=== PATIENT | male | born 1965 | race African-American/Black ===

== ENCOUNTER 2017-03-12 02:57 | Emergency (ER) | payer SELFPAY ==
[2017-03-12] MEDS ORDERED: INSULIN GLARGINE,HUM.REC.ANLOG 1,000 UNIT/10 ML UNIT SUBCUT ONE (03:39)
[2017-03-12] MEDS ORDERED: INSULIN REG, HUMAN 100 UNIT/ML 3 ML VIAL (PYX) SUBCUT ONE ×2 (03:39→05:31)
[2017-03-12] MEDS ORDERED: NORMAL SALINE 500 ML IV ONE (03:40)
--- NOTE | 2017-03-12 03:51 | ER Document Report ---
ED General - General Chief Complaint: Dizziness Stated Complaint: DIZZINESS Time Seen by Provider: 03/12/17 03:19 Notes: Patient is a 51-year-old male presents with complaint of feeling dizzy. He also says he has blurred vision both eyes feels weak and with a short of breath. He has been off his medications for approximate month. He takes Lantus for diabetes. He says he takes 4 units at night. He also takes metformin. He is also on lisinopril. He is also on daily aspirin. He says he is on several other medications but does not remove the names of them. He just moved here from [place]. He said approximately year and half ago he was seen at a hospital that he thinks is in [facility]. He says there they did what sounds to be a heart cath and told him he had a clot 1 hours of his heart but he did not require stent. He said he was placed on a blood thinner for several months and then taken off. He said last time he saw his doctor was told he does not need this but anymore. He has any fevers. He says he has had urinary frequency. His urine has also appeared dark. He has not checked his blood sugar. He has no other complaints at this time. TRAVEL OUTSIDE OF THE U.S. IN LAST 30 DAYS: No - Related Data Allergies/Adverse Reactions: No Known Allergies Allergy (Unverified 03/12/17 03:13) Past Medical History - Social History Smoking Status: Former Smoker Frequency of alcohol use: None Drug Abuse: None Family History: Reviewed & Not Pertinent Patient has suicidal ideation: No Patient has homicidal ideation: No - Past Medical History Cardiac Medical History: Reports: Hx Hypercholesterolemia, Hx Hypertension Endocrine Medical History: Reports: Hx Diabetes Mellitus Type 2 Renal/ Medical History: Denies: Hx Peritoneal Dialysis Past Surgical History: Reports: Hx Cardiac Catheterization Review of Systems - Review of Systems Notes: My Normal Review Basic REVIEW OF SYSTEMS: CONSTITUTIONAL : Denies fever, chills, or sweats. Denies recent illness. EENT: Denies eye, ear, throat, or mouth pain or symptoms. Denies nasal or sinus congestion. CARDIOVASCULAR: Denies chest pain. RESPIRATORY: Some dyspnea. GASTROINTESTINAL: Denies abdominal pain. Denies nausea, vomiting, or diarrhea. Denies constipation. Last BM: GENITOURINARY: Dark urine with frequent urination. MUSCULOSKELETAL: Denies neck or back pain or joint pain or swelling. SKIN: Denies rash or skin lesions. NEUROLOGICAL: Denies altered mental status or loss of consciousness. Dizziness.. Denies weakness or paralysis or loss of use of either side. Denies problems with gait or speech. Denies sensory or motor loss. PSYCHIATRIC: Denies anxiety or stress or depression. ALL OTHER SYSTEMS REVIEWED AND NEGATIVE. Physical Exam - Vital signs Vitals: Temp Pulse Resp BP Pulse Ox 97.6 F 101 H 18 161/100 H 96 03/12/17 03:00 03/12/17 03:00 03/12/17 03:00 03/12/17 03:00 03/12/17 03:00 Course - Re-evaluation Re-evalutation: 03/12/17 06:56 She is feeling improved now his sugars stabilized. He says he does not have insurance and cannot afford any expensive medications. Informed her Lantus would be expensive however also write a prescription for that and he can feel it when he has money or when his insurance kicks in. In the meantime will place him back on metformin which will help stabilize his sugar as well. Also represcribed his lisinopril and hydrochlorothiazide as he used to take these for blows his blood pressure. I encouraged him to get daily aspirin when she supposed to. He says that he does have an upcoming appointment with the doctor in [facility] but he does not know the doctor's name as he has not checked his smell. He says his doctor in [place] set him up with this appointment with a local doctor here [place]. Informed patient we will give him information to the [facility] being that he says he does not have insurance. I informed him that even though his upcoming point with another doctor that he should still make an appointment to [facility] in case things follow through with this other doctor. Patient encouraged to return to ER immediately if he has chest pain, shortness of breath, or feels unwell. Patient 's initial troponin was indeterminate and therefore I did do a repeat troponin which was at almost the exact same level. Patient has no chest pain and looks well. I do not think is have any type of ischemic disease to his heart at this time. I think his blurred vision and dizziness is related to his high blood sugars especially since the symptoms have improved after improving his sugar. Dictation of this chart was performed using voice recognition software; therefore, there may be some unintended grammatical errors. - Vital Signs Vital signs: Temp Pulse Resp BP Pulse Ox 97.6 F 101 H 19 137/87 H 94 03/12/17 03:00 03/12/17 03:00 03/12/17 06:01 03/12/17 06:01 03/12/17 06:01 - Laboratory Result Diagrams: 03/12/17 03:40 03/12/17 03:40 Laboratory results interpreted by me: 03/12/17 03/12/17 03/12/17 03:40 03:40 03:40 Hgb 12.5 L MCV 78 L MCH 25.2 L Plt Count 138 L BUN 25 H Glucose 531 H* POC Glucose Alkaline Phosphatase 129 H Creatine Kinase 883 H CK-MB (CK-2) 8.38 H Urine Glucose (UA) 03/12/17 03/12/17 03:40 05:24 Hgb MCV MCH Plt Count BUN Glucose POC Glucose 341 H Alkaline Phosphatase Creatine Kinase CK-MB (CK-2) Urine Glucose (UA) >=500 H - EKG Interpretation by Me Additional EKG results interpreted by me: 03/12/17 03:48 EKG is reviewed and interpreted by me. EKG shows normal sinus rhythm with rate of 92 bpm. She has a small amount of ST segment elevation of is mainly concave up. There is less than [address] segment depression in lead III only. Patient has no chest pain. I do not think this is consistent with a STEMI at this time based on his clinical presentation. I have no old EKG to compare to. I will closely monitor and wait for troponins to come back. Discharge - Discharge Clinical Impression: Hyperglycemia, Dizziness Condition: Good Disposition: HOME, SELF-CARE Additional Instructions: Please return to the ER immediately if you develop fevers, vomiting, chest pain , difficulty rbeathing, worsening blurred vision, or feel that your symptoms are returning. Please follow up with your doctor. Please fill the prescriptions and start taking your medications. Also take a daily 81mg aspirin. I have provided information to the [facility] in case you are unable to follow up with the doctor you are supposed to see here in town. Prescriptions: Hydrochlorothiazide 12.5 mg PO DAILY #30 tablet Lisinopril 10 mg PO DAILY #30 tablet Metformin HCl [Glucophage 500 mg Tablet] 500 mg PO BID #60 tablet
[2017-03-12 04:10] LABS: ABSOLUTE EOSINOPHILS # (AUTO) 0.2 10^3/uL (0.0-0.6); ABSOLUTE LYMPHOCYTES (AUTO) 1.5 10^3/uL (0.5-4.7); ABSOLUTE MONOCYTES (AUTO) 0.6 10^3/uL (0.1-1.4); BASOPHILS % (AUTO) 0.6 % (0-2); EOSINOPHILS % (AUTO) 3.2 % (0-6); HEMATOCRIT 38.9 % (37.9-51.0); HEMOGLOBIN 12.5 g/dL (13.5-17.0); HGB HCT DIFFERENCE -1.4; LYMPHOCYTES % (AUTO) 23.3 % (13-45); MEAN CORPUSCULAR HEMOGLOBIN 25.2 pg (27.0-33.4); MEAN CORPUSCULAR HGB CONC 32.2 g/dL (32.0-36.0); MEAN CORPUSCULAR VOLUME 78 fl (80-97); MONOCYTES % (AUTO) 9.5 % (3-13); RED BLOOD COUNT 4.97 10^6/uL (4.35-5.55); RED CELL DISTRIBUTION WIDTH 13.6 % (11.5-14.0); SEGMENTED NEUTROPHILS % (AUTO) 63.4 % (42-78); WHITE BLOOD COUNT 6.3 10^3/uL (4.0-10.5)
--- NOTE | 2017-03-12 04:16 | RADIOLOGY REPORT (SQ) ---
EXAM DESCRIPTION: CHEST SINGLE VIEW COMPLETED DATE/TIME: 03/12/2017 4:00 am REASON FOR STUDY: Dyspnea, dizziness COMPARISON: None. EXAM PARAMETERS: NUMBER OF VIEWS: One view. TECHNIQUE: Single frontal radiographic view of the chest acquired. RADIATION DOSE: NA LIMITATIONS: None. FINDINGS: LUNGS AND PLEURA: No opacities, masses or pneumothorax. No pleural effusion. MEDIASTINUM AND HILAR STRUCTURES: No masses. Contour normal. HEART AND VASCULAR STRUCTURES: Heart normal in size. Normal vasculature. BONES: No acute findings. HARDWARE: None in the chest. OTHER: No other significant finding. IMPRESSION: NO ACUTE RADIOGRAPHIC FINDING IN THE CHEST. TECHNICAL DOCUMENTATION: JOB ID: [id number] [employer]- All Rights Reserved
[2017-03-12 04:18] LABS: APPEARANCE,URINE CLEAR; BILIRUBIN,URINE NEGATIVE (NEGATIVE); GLUCOSE, URINE >=500 mg/dL (NEGATIVE); KETONES,URINE NEGATIVE (NEGATIVE); LEUKOCYTE ESTERASE,URINE NEGATIVE (NEGATIVE); NITRITE,URINE NEGATIVE (NEGATIVE); PROTEIN,URINE NEGATIVE (NEGATIVE); URINE SPECIFIC GRAVITY 1.027; UROBILINOGEN,URINE NEGATIVE mg/dL (<2.0)
[2017-03-12 04:24] LABS: ALANINE AMINOTRANSFERASE 52 U/L (21-72); ALKALINE PHOSPHATASE 129 U/L (38-126); ANION GAP 12 (5-19); ASPARTATE AMINO TRANSFERASE 41 U/L (17-59); BILIRUBIN,DIRECT 0.4 mg/dL (0.0-0.4); BILIRUBIN,TOTAL 0.5 mg/dL (0.2-1.3); BLOOD UREA NITROGEN 25 mg/dL (7-20); CALCIUM 9.8 mg/dL (8.4-10.2); CARBON DIOXIDE 26 mmol/L (22-30); CHLORIDE 100 mmol/L (98-107); CREATINE KINASE 883 U/L (55-170); CREATININE RESULT 1.17 mg/dL (0.52-1.25); POTASSIUM 4.7 mmol/L (3.6-5.0); SODIUM 137.7 mmol/L (137-145); TOTAL PROTEIN 7.1 g/dL (6.3-8.2)
[2017-03-12 04:31] LABS: GLUCOSE 531 mg/dL (75-110)
[2017-03-12 04:35] LABS: CREATINE KINASE MB 8.38 ng/mL (<4.55)
[2017-03-12 04:38] LABS: TROPONIN I 0.038 ng/mL
[2017-03-12 06:38] VITALS: BP 137/87
--- NOTE | 2017-03-12 19:33 | EKG REPORT ---
SEVERITY:- BORDERLINE ECG - SINUS RHYTHM PROBABLE LEFT ATRIAL ABNORMALITY BORDERLINE LEFT AXIS DEVIATION ST ELEV, PROBABLE NORMAL EARLY REPOL PATTERN : Confirmed by: Carolann Lazo MD 12-Mar-2017 19:32:36
== END 2017-03-12 07:14 | disposition home or self-care (01) ==
LOC: ER 02:57
DX: E11.65 Type 2 diabetes mellitus with hyperglycemia (principal); R42 Dizziness and giddiness; H53.8 Other visual disturbances; R53.1 Weakness; R06.02 Shortness of breath; E78.00 Pure hypercholesterolemia, unspecified; I10 Essential (primary) hypertension; Z79.82 Long term (current) use of aspirin; Z87.891 Personal history of nicotine dependence
CPT/HCPCS: 93005; 99284; 36415; 82553; 82962; 82550; 85025; 80053; 81001; 84484; 71010; 93010; J1815 ×2

== ENCOUNTER 2017-03-25 11:44 | Observation (INO) | payer OTHER ==
[2017-03-25] MEDS ORDERED: NORMAL SALINE 1000 ML 1,000 ML IV ONE ×2 (12:54→15:12)
--- NOTE | 2017-03-25 12:55 | ER Document Report ---
ED Medical Screen (RME) - General Chief Complaint: Chest Pain Stated Complaint: CHEST PAIN Time Seen by Provider: 03/25/17 12:53 Notes: pt feels weak/dizzy, has cp TRAVEL OUTSIDE OF THE U.S. IN LAST 30 DAYS: No - Related Data Allergies/Adverse Reactions: No Known Allergies Allergy (Verified 03/25/17 12:51) Past Medical History - Social History Chew tobacco use (# tins/day): No Frequency of alcohol use: None Drug Abuse: None - Past Medical History Cardiac Medical History: Reports: Hx Hypercholesterolemia, Hx Hypertension Endocrine Medical History: Reports: Hx Diabetes Mellitus Type 2 Renal/ Medical History: Denies: Hx Peritoneal Dialysis Past Surgical History: Reports: Hx Cardiac Catheterization Physical Exam - Vital signs Vitals: Temp Pulse Resp BP Pulse Ox 97.9 F 95 20 121/78 97 03/25/17 12:12 03/25/17 12:12 03/25/17 12:12 03/25/17 12:12 03/25/17 12:12 Course - Vital Signs Vital signs: Temp Pulse Resp BP Pulse Ox 97.9 F 95 20 121/78 97 03/25/17 12:12 03/25/17 12:12 03/25/17 12:12 03/25/17 12:12 03/25/17 12:12
[2017-03-25 13:16] LABS: APPEARANCE,URINE CLEAR; BILIRUBIN,URINE NEGATIVE (NEGATIVE); GLUCOSE, URINE >=500 mg/dL (NEGATIVE); KETONES,URINE NEGATIVE (NEGATIVE); LEUKOCYTE ESTERASE,URINE NEGATIVE (NEGATIVE); NITRITE,URINE NEGATIVE (NEGATIVE); PROTEIN,URINE NEGATIVE (NEGATIVE); URINE SPECIFIC GRAVITY 1.025; UROBILINOGEN,URINE NEGATIVE mg/dL (<2.0)
[2017-03-25 13:19] LABS: BACTERIA,URINE TRACE /HPF
--- NOTE | 2017-03-25 13:23 | EKG REPORT ---
SEVERITY:- ABNORMAL ECG - SINUS RHYTHM LEFT ANTERIOR FASCICULAR BLOCK BORDERLINE T WAVE ABNORMALITIES MINIMAL ST ELEVATION, ANTERIOR LEADS : Confirmed by: Jessi Jack 25-Mar-2017 13:22:32
--- NOTE | 2017-03-25 13:26 | RADIOLOGY REPORT (SQ) ---
EXAM DESCRIPTION: CHEST PA/LAT COMPLETED DATE/TIME: 03/25/2017 1:20 pm REASON FOR STUDY: cp COMPARISON: 03/12/2017. EXAM PARAMETERS: NUMBER OF VIEWS: two views TECHNIQUE: Digital Frontal and Lateral radiographic views of the chest acquired. RADIATION DOSE: NA LIMITATIONS: none FINDINGS: LUNGS AND PLEURA: No opacities, masses or pneumothorax. No pleural effusion. MEDIASTINUM AND HILAR STRUCTURES: No masses or contour abnormalities. HEART AND VASCULAR STRUCTURES: Heart normal size. No evidence for failure. BONES: No acute findings. HARDWARE: None in the chest. OTHER: No other significant finding. IMPRESSION: NO SIGNIFICANT RADIOGRAPHIC FINDING IN THE CHEST. TECHNICAL DOCUMENTATION: JOB ID: [id number] [employer]- All Rights Reserved
[2017-03-25 14:08] LABS: ABSOLUTE EOSINOPHILS # (AUTO) 0.2 10^3/uL (0.0-0.6); ABSOLUTE LYMPHOCYTES (AUTO) 1.3 10^3/uL (0.5-4.7); ABSOLUTE MONOCYTES (AUTO) 0.4 10^3/uL (0.1-1.4); ABSOLUTE NEUT (AUTO) 2.3 10^3/uL (1.7-8.2); BASOPHILS % (AUTO) 0.8 % (0-2); HEMATOCRIT 44.5 % (37.9-51.0); HEMOGLOBIN 13.9 g/dL (13.5-17.0); HGB HCT DIFFERENCE -2.8; LYMPHOCYTES % (AUTO) 31.1 % (13-45); MEAN CORPUSCULAR HGB CONC 31.2 g/dL (32.0-36.0); MEAN CORPUSCULAR VOLUME 80 fl (80-97); MONOCYTES % (AUTO) 9.7 % (3-13); RED BLOOD COUNT 5.55 10^6/uL (4.35-5.55); RED CELL DISTRIBUTION WIDTH 14.4 % (11.5-14.0); SEGMENTED NEUTROPHILS % (AUTO) 54.4 % (42-78); WHITE BLOOD COUNT 4.3 10^3/uL (4.0-10.5)
[2017-03-25 14:27] LABS: ALANINE AMINOTRANSFERASE 49 U/L (21-72); ALBUMIN 4.5 g/dL (3.5-5.0); ALKALINE PHOSPHATASE 160 U/L (38-126); ANION GAP 17 (5-19); ASPARTATE AMINO TRANSFERASE 34 U/L (17-59); BILIRUBIN,DIRECT 0.3 mg/dL (0.0-0.4); BILIRUBIN,TOTAL 0.6 mg/dL (0.2-1.3); BLOOD UREA NITROGEN 39 mg/dL (7-20); CALCIUM 8.7 mg/dL (8.4-10.2); CARBON DIOXIDE 29 mmol/L (22-30); CHLORIDE 85 mmol/L (98-107); CREATININE RESULT 1.65 mg/dL (0.52-1.25); POTASSIUM 5.3 mmol/L (3.6-5.0); SODIUM 131.1 mmol/L (137-145); TOTAL PROTEIN 7.5 g/dL (6.3-8.2)
[2017-03-25 14:36] LABS: GLUCOSE 841 mg/dL (75-110)
[2017-03-25] MEDS ORDERED: INSULIN REG, HUMAN 100 UNIT/ML 3 ML VIAL (PYX) IV ONE ×2 (15:00→23:00)
[2017-03-25] MEDS ORDERED: LIDOCAINE 2% VISCOUS SOLN 20 ML UDCUP PO ONE (16:43)
[2017-03-25] MEDS ORDERED: METOCLOPRAMIDE HCL ORAL SOLN 10 MG/10 ML UDCUP PO ONE (16:43)
[2017-03-25] MEDS ORDERED: MAG HYDROX/AL HYDROX/SIMETH SUSP 30 ML UDCUP PO ONE (16:43)
[2017-03-25] MEDS ORDERED: ASPIRIN 81 MG TABLET, CHEWABLE PO ONE (16:45)
[2017-03-25 17:23] LABS: VENOUS BLOOD BASE EXCESS 2.3 mmol/L; VENOUS BLOOD HCO3 28.8 mmol/L (20-32); VENOUS BLOOD PCO2 52.4 mmHg (35-63); VENOUS BLOOD PH 7.36 (7.30-7.42)
--- NOTE | 2017-03-25 18:01 | ER Document Report ---
ED General - General Chief Complaint: Chest Pain Stated Complaint: CHEST PAIN Time Seen by Provider: 03/25/17 12:53 Mode of Arrival: Ambulatory Information source: Patient Notes: Patient is a homeless male with diabetes type 2 who presents to the ER today for headache, chest pain, blurred vision and cramps in his hands and feet. Patient states that he has not been able to afford his insulin for over 3 months. He has been taking his Metformin. He denies any history of heart attack or stroke. He states that the chest pain is mainly on the left side of his chest but does radiate up into his "throat." He denies any shortness of breath or nausea with this. TRAVEL OUTSIDE OF THE [place] IN LAST 30 DAYS: No - Related Data Allergies/Adverse Reactions: No Known Allergies Allergy (Verified 03/25/17 12:51) Home Medications: Current Home Medications Aspirin [Aspirin EC] 81 mg PO DAILY 03/26/17 [History] Atorvastatin Calcium [Lipitor 40 mg Tablet] 40 mg PO QHS 03/26/17 [History] Carvedilol [Coreg 12.5 mg Tablet] 12.5 mg PO Q12 03/26/17 [History] Ergocalciferol (Vitamin D2) [Vitamin D2] 50,000 unit PO VASQUES@1000 03/26/17 [ History] Furosemide [Lasix 40 mg Tablet] 40 mg PO DAILY 03/26/17 [History] Gabapentin [Neurontin 300 mg Capsule] 300 mg PO Q8 03/26/17 [History] Hydralazine HCl [Apresoline 25 mg Tablet] 25 mg PO DAILY 03/26/17 [History] Insulin Glargine,Hum.rec.anlog [Lantus] 30 units SUBCUT DAILY 03/26/17 [History] Isosorbide Mononitrate [Ismo 20 mg Tablet] 20 mg PO Q12 03/26/17 [History] Lisinopril [Prinivil 40 mg Tablet] 40 mg PO DAILY 03/26/17 [History] Metformin HCl [Glucophage 500 mg Tablet] 500 mg PO BID 03/26/17 [History] Spironolactone [Aldactone 25 mg Tablet] 25 mg PO DAILY 03/26/17 [History] Past Medical History - General Information source: Patient - Social History Smoking Status: Unknown if Ever Smoked Chew tobacco use (# tins/day): No Frequency of alcohol use: None Drug Abuse: None Family History: Reviewed & Not Pertinent Patient has suicidal ideation: No Patient has homicidal ideation: No - Past Medical History Cardiac Medical History: Reports: Hx Hypercholesterolemia, Hx Hypertension Endocrine Medical History: Reports: Hx Diabetes Mellitus Type 2 Renal/ Medical History: Denies: Hx Peritoneal Dialysis Past Surgical History: Reports: Hx Cardiac Catheterization Review of Systems - Review of Systems Constitutional: No symptoms reported EENT: No symptoms reported Cardiovascular: See HPI Respiratory: No symptoms reported Gastrointestinal: No symptoms reported Genitourinary: No symptoms reported Male Genitourinary: No symptoms reported Musculoskeletal: See HPI Skin: No symptoms reported Hematologic/Lymphatic: No symptoms reported Neurological/Psychological: No symptoms reported Physical Exam - Vital signs Vitals: Temp Pulse Resp BP Pulse Ox 97.9 F 95 20 121/78 97 03/25/17 12:12 03/25/17 12:12 03/25/17 12:12 03/25/17 12:12 03/25/17 12:12 - Notes Notes: PHYSICAL EXAMINATION: GENERAL: Chronically ill-appearing, but in no acute distress. HEAD: Atraumatic, normocephalic. EYES: Pupils equal round and reactive to light, extraocular movements intact, sclera anicteric, conjunctiva are normal. ENT: ear canals without erythema or foreign body, TMs pearly chowdhury with good bony landmarks, nares patent, oropharynx clear without exudates. Moist mucous membranes. NECK: Normal range of motion, supple without lymphadenopathy LUNGS: CTAB and equal. No wheezes rales or rhonchi. HEART: chest nontender to palpation,Regular rate and rhythm without murmurs ABDOMEN: Soft, no tenderness. No guarding, no rebound BACK: no vertebral tenderness, normal ROM GI/: no CVA tenderness EXTREMITIES: Normal range of motion, no pitting edema. No cyanosis. NEUROLOGICAL: Cranial nerves grossly intact. Normal sensory/motor exams. PSYCH: Normal mood, normal affect. SKIN: Warm, Dry, normal turgor, no rashes or lesions noted Course - Re-evaluation Re-evalutation: 03/25/17 16:14 BusteedCardiac enzymes negative 2, actually better than patient's normal. EKG reveals no STEMI, patient's chest pain did completely resolve with a GI cocktail. His glucose was 841 on arrival. He did receive insulin and IV fluids from the triage doctor upfront which did reduce it to 335 glucose. Patient does have elevated creatinine, 1.65 compared to his normal creatinine last month. I will admit him at this time for acute kidney injury and uncontrolled diabetes type 2. Dr. Willis agrees to admit patient at this time. - Vital Signs Vital signs: Temp Pulse Resp BP Pulse Ox 97.5 F 89 15 151/83 H 96 03/26/17 04:25 03/26/17 04:25 03/26/17 04:25 03/26/17 04:25 03/26/17 04:25 - Laboratory Result Diagrams: 03/26/17 05:55 03/26/17 05:55 Laboratory results interpreted by me: 03/25/17 03/25/17 03/25/17 12:10 12:41 13:51 MCH 25.0 L MCHC 31.2 L RDW 14.4 H Plt Count 102 L Sodium Potassium Chloride BUN Creatinine Est GFR ( Amer) Est GFR (Non-Af Amer) Glucose POC Glucose > 550 H* Serum Osmolality Alkaline Phosphatase Urine Glucose (UA) >=500 H 03/25/17 03/25/17 03/25/17 13:51 13:51 17:08 MCH MCHC RDW Plt Count Sodium 131.1 L Potassium 5.3 H Chloride 85 L BUN 39 H Creatinine 1.65 H Est GFR ( Amer) 53 L Est GFR (Non-Af Amer) 44 L Glucose 841 H* POC Glucose 335 H Serum Osmolality 326 H Alkaline Phosphatase 160 H Urine Glucose (UA) Discharge - Discharge Clinical Impression: JC (acute kidney injury) Diabetes type 2, uncontrolled Qualifiers: Diabetes mellitus complication status: with unspecified complications Diabetes mellitus truck terminal manager insulin use: with 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
[2017-03-25] MEDS ORDERED: NORMAL SALINE 1000 ML 1,000 ML IV PRN (18:24)
[2017-03-25] MEDS ORDERED: ACETAMINOPHEN 325 MG TABLET PO PRN (18:24)
[2017-03-25] MEDS ORDERED: INSULIN LISPRO 100 UNIT/ML 3 ML VIAL SUBCUT PRN (18:28)
[2017-03-25] MEDS ORDERED: GLUCAGON,HUMAN RECOMB 1 MG INJ IM PRN (18:28)
[2017-03-25] MEDS ORDERED: DEXTROSE 40% GEL 15 GM TUBE PO PRN ×2 (18:28)
[2017-03-25] MEDS ORDERED: DEXTROSE 50%-WATER 25 GM/50 ML DISP.SYRIN IV PRN ×2 (18:28)
--- NOTE | 2017-03-25 18:36 | PDOC H&P ---
History of Present Illness Admission Date/PCP: 03/25/17 18:08 Patient complains of: Blurred vision History of Present Illness: KATIE PEREZ is a 51 year old male with a history of diabetes who is homeless who reports is not taking his medicine for quite some time. He has had problems with complaints of blurred vision. He also has had some acid reflux symptoms. He denies any dyspnea on exertion. He has had polyuria and polydipsia. He presented to the emergency room today and laboratory work showed him to have acute renal failure and a creatinine done last year was normal. Patient is admitted for acute renal failure. He is noted to be hypoglycemic with blood sugar of 800 but he does not have DKA. He appears to be dehydrated from his hypoglycemia. Past Medical History Cardiac Medical History: Reports: Hyperlipidema, Hypertension, Pulmonary Embolism Pulmonary Medical History: Reports: None Endocrine Medical History: Reports: Diabetes Mellitus Type 2 Renal/ Medical History: Reports: None Malignancy Medical History: Reports: None GI Medical History: Reports: None Musculoskeltal Medical History: Reports: None Psychiatric Medical History: Reports: None Traumatic Medical History: Reports: None Infectious Medical History: Reports: None Past Surgical History Past Surgical History: Reports: Cardiac Catheterization Social History Information Source: Patient Lives with: Homeless Smoking Status: Former Smoker Frequency of Alcohol Use: None Hx Recreational Drug Use: No Drugs: None Hx Prescription Drug Abuse: No - Advance Directive Resuscitation Status: Full Code Family History Family History: Father's health history is unknown. Mother is 80 and alive. She has diabetes. Parental Family History Reviewed: Yes Children Family History Reviewed: No Sibling(s) Family History Reviewed.: No Medication/Allergy Home Medications: Hydrochlorothiazide 12.5 mg PO DAILY #30 tablet 03/12/17 Lisinopril 10 mg PO DAILY #30 tablet 03/12/17 Metformin HCl [Glucophage 500 mg Tablet] 500 mg PO BID #60 tablet 03/12/17 Allergies/Adverse Reactions: No Known Allergies Allergy (Verified 03/25/17 12:51) Review of Systems Constitutional: ABSENT: chills, fever(s), headache(s), weight gain, weight loss Eyes: PRESENT: as per HPI, visual disturbances Ears: ABSENT: hearing changes Cardiovascular: ABSENT: chest pain, dyspnea on exertion, edema, orthropnea, palpitations Respiratory: ABSENT: cough, hemoptysis Gastrointestinal: ABSENT: abdominal pain, constipation, diarrhea, hematemesis, hematochezia, nausea, vomiting Genitourinary: PRESENT: other - Polyuria Musculoskeletal: ABSENT: joint swelling Integumentary: ABSENT: rash, wounds Neurological: ABSENT: abnormal gait, abnormal speech, confusion, dizziness, focal weakness, syncope Psychiatric: ABSENT: anxiety, depression Endocrine: ABSENT: cold intolerance, heat intolerance, polydipsia, polyuria Hematologic/Lymphatic: ABSENT: easy bleeding, easy bruising Physical Exam Vital Signs: Temp Pulse Resp BP Pulse Ox 97.9 F 95 18 121/78 97 03/25/17 12:12 03/25/17 12:12 03/25/17 17:33 03/25/17 12:12 03/25/17 12:12 General appearance: PRESENT: no acute distress, well-developed, well-nourished Head exam: PRESENT: atraumatic, normocephalic Eye exam: PRESENT: conjunctiva pink, EOMI, PERRLA. ABSENT: scleral icterus Ear exam: PRESENT: normal external ear exam Mouth exam: PRESENT: moist, tongue midline Neck exam: ABSENT: carotid bruit, JVD, lymphadenopathy, thyromegaly Respiratory exam: PRESENT: clear to auscultation pepper. ABSENT: rales, rhonchi, wheezes Cardiovascular exam: PRESENT: RRR. ABSENT: diastolic murmur, rubs, systolic murmur GI/Abdominal exam: PRESENT: normal bowel sounds, soft. ABSENT: distended, guarding, mass, organolmegaly, rebound, tenderness Rectal exam: PRESENT: deferred Extremities exam: ABSENT: calf tenderness, clubbing, pedal edema Neurological exam: PRESENT: alert, awake, oriented to person, oriented to place , oriented to time, oriented to situation, CN II-XII grossly intact. ABSENT: motor sensory deficit Psychiatric exam: PRESENT: appropriate affect Skin exam: PRESENT: dry, intact, warm. ABSENT: cyanosis, rash Results Impressions: Chest X-Ray 03/25/17 12:55 IMPRESSION: NO SIGNIFICANT RADIOGRAPHIC FINDING IN THE CHEST. Assessment & Plan - Diagnosis (1) JC (acute kidney injury) Is this a current diagnosis for this admission?: Yes Plan: This most likely secondary to dehydration secondary to his hyperglycemia. He has no evidence for DKA at this time. We will treat with IV fluids and repeat a chemistry panel in the morning. (2) Diabetes type 2, uncontrolled Qualifiers: Diabetes mellitus complication status: with unspecified complications Diabetes mellitus long term care phlebotomist insulin use: with long term care phlebotomist use Qualified Code(s) : E11.8 - Type 2 diabetes mellitus with unspecified complications; E11.65 - Type 2 diabetes mellitus with hyperglycemia; E11.65 - Type 2 diabetes mellitus with hyperglycemia; E11.65 - Type 2 diabetes mellitus with hyperglycemia; E11.65 - Type 2 diabetes mellitus with hyperglycemia; Z79.4 - superintendent terminal (current ) use of insulin; Z79.4 - superintendent terminal (current) use of insulin; Z79.4 - custodial (current) use of insulin; Z79.4 - custodial (current) use of insulin Is this a current diagnosis for this admission?: Yes Plan: The patient has not been taking his medications. We will restart his Lantus and cover with sliding scale insulin. (3) Hypertension Is this a current diagnosis for this admission?: Yes - Time Time Spent: 50 to 70 Minutes - Plan Summary Plan Summary: Patient will be admitted as an observation.
[2017-03-25] MEDS ORDERED: INSULIN GLARGINE,HUM.REC.ANLOG 1,000 UNIT/10 ML UNIT SUBCUT ONE ×3 (20:00→23:00)
[2017-03-25] MEDS ORDERED: LACTULOSE SYRUP 20 GM/30 ML UDCUP PO ONE (20:38)
--- NOTE | 2017-03-25 21:37 | EKG REPORT ---
SEVERITY:- BORDERLINE ECG - SINUS RHYTHM LEFT AXIS DEVIATION BORDERLINE T ABNORMALITIES, INFERIOR LEADS : Confirmed by: Jessi Jack 25-Mar-2017 21:37:10
[2017-03-25 21:49] LABS: CREATINE KINASE MB 3.91 ng/mL (<4.55)
[2017-03-25 21:53] LABS: TROPONIN I 0.032 ng/mL
[2017-03-25] MEDS ORDERED: FAMOTIDINE 20 MG TABLET PO SCH (22:00)
[2017-03-25 22:05] LABS: ANION GAP 11 (5-19); BLOOD UREA NITROGEN 38 mg/dL (7-20); CALCIUM 8.2 mg/dL (8.4-10.2); CARBON DIOXIDE 30 mmol/L (22-30); CHLORIDE 96 mmol/L (98-107); POTASSIUM 5.3 mmol/L (3.6-5.0); SODIUM 136.5 mmol/L (137-145)
[2017-03-25] MEDS ORDERED: INSULIN LISPRO 100 UNIT/ML 3 ML VIAL ONE (22:11)
[2017-03-25] MEDS ORDERED: INSULIN REG, HUMAN 100 UNIT/ML 3 ML VIAL (PYX) ONE (22:12)
[2017-03-25 22:15] LABS: GLUCOSE 569 mg/dL (75-110)
[2017-03-25] MEDS ORDERED: INSULIN LISPRO 100 UNIT/ML 3 ML VIAL SUBCUT ONE (23:00)
[2017-03-26 04:36] VITALS: BP 151/83
[2017-03-26 06:20] LABS: HEMATOCRIT 36.9 % (37.9-51.0); HEMOGLOBIN 12.1 g/dL (13.5-17.0); HGB HCT DIFFERENCE -0.6; MEAN CORPUSCULAR HEMOGLOBIN 25.1 pg (27.0-33.4); MEAN CORPUSCULAR HGB CONC 32.7 g/dL (32.0-36.0); MEAN CORPUSCULAR VOLUME 77 fl (80-97); RED CELL DISTRIBUTION WIDTH 13.8 % (11.5-14.0); WHITE BLOOD COUNT 4.5 10^3/uL (4.0-10.5)
[2017-03-26 06:31] LABS: ANION GAP 7 (5-19); BLOOD UREA NITROGEN 28 mg/dL (7-20); CALCIUM 8.1 mg/dL (8.4-10.2); CARBON DIOXIDE 32 mmol/L (22-30); CHLORIDE 103 mmol/L (98-107); CREATININE RESULT 1.07 mg/dL (0.52-1.25); GLUCOSE 274 mg/dL (75-110); POTASSIUM 4.8 mmol/L (3.6-5.0); SODIUM 141.7 mmol/L (137-145)
[2017-03-26] MEDS ORDERED: INSULIN GLARGINE,HUM.REC.ANLOG 300 UNIT/3 ML INSULN.PEN SUBCUT SCH (10:00)
--- NOTE | 2017-03-26 14:07 | PDOC DISCHARGE SUMMARY ---
General - Admit/Disc Date/PCP Admission Date/Primary Care Provider: 03/25/17 18:08 Discharge Date: 03/26/17 - Discharge Diagnosis (1) JC (acute kidney injury) Is this a current diagnosis for this admission?: Yes Summary: Secondary to dehydration from hyperglycemia. Resolved. (2) Diabetes type 2, uncontrolled Is this a current diagnosis for this admission?: Yes (3) Hypertension Is this a current diagnosis for this admission?: Yes - Additional Information Resuscitation Status: Full Code Discharge Diet: Diabetic Discharge Activity: Activity As Tolerated Home Medications: Aspirin [Aspirin EC] 81 mg PO DAILY 03/26/17 Atorvastatin Calcium [Lipitor 40 mg Tablet] 40 mg PO QHS 03/26/17 Carvedilol [Coreg 12.5 mg Tablet] 12.5 mg PO Q12 03/26/17 Ergocalciferol (Vitamin D2) [Vitamin D2] 50,000 unit PO VASQUES@1000 03/26/17 Furosemide [Lasix 40 mg Tablet] 40 mg PO DAILY 03/26/17 Gabapentin [Neurontin 300 mg Capsule] 300 mg PO Q8 03/26/17 Hydralazine HCl [Apresoline 25 mg Tablet] 25 mg PO DAILY 03/26/17 Insulin Glargine,Hum.rec.anlog [Lantus] 30 units SUBCUT DAILY 03/26/17 Isosorbide Mononitrate [Ismo 20 mg Tablet] 20 mg PO Q12 03/26/17 Lisinopril [Prinivil 40 mg Tablet] 40 mg PO DAILY 03/26/17 Metformin HCl [Glucophage 500 mg Tablet] 500 mg PO BID 03/26/17 Spironolactone [Aldactone 25 mg Tablet] 25 mg PO DAILY 03/26/17 History of Present Illness History of Present Illness: KATIE PEREZ is a 51 year old male with a history of diabetes who is homeless who reports is not taking his medicine for quite some time. He has had problems with complaints of blurred vision. He also has had some acid reflux symptoms. He denies any dyspnea on exertion. He has had polyuria and polydipsia. He presented to the emergency room today and laboratory work showed him to have acute renal failure and a creatinine done last year was normal. Patient is admitted for acute renal failure. He is noted to be hypoglycemic with blood sugar of 800 but he does not have DKA. He appears to be dehydrated from his hypoglycemia. Hospital Course Hospital Course: 51-year-old male who presented with acute renal failure from hyperglycemia and dehydration. Patient was given IV fluids and restarted on his Lantus. He had not been taking his Lantus because of his inability to afford it. Discharge planning was contacted to help him find a way to pay for his medications. [facility] The patient did have some noncardiac chest pain which had resolved overnight. Patient had negative troponins. Patient is discharged home. Physical Exam Vital Signs: Temp Pulse Resp BP Pulse Ox 97.5 F 89 15 151/83 H 96 03/26/17 04:25 03/26/17 04:25 03/26/17 04:25 03/26/17 04:25 03/26/17 04:25 Intake & Output 03/25/17 03/26/17 03/27/17 06:59 06:59 06:59 Intake Total 1600 Output Total 2700 Balance -1100 General appearance: PRESENT: no acute distress Eye exam: PRESENT: conjunctiva pink. ABSENT: scleral icterus Mouth exam: PRESENT: moist, tongue midline Neck exam: ABSENT: JVD Respiratory exam: PRESENT: clear to auscultation pepper. ABSENT: rales, rhonchi, wheezes Cardiovascular exam: PRESENT: RRR. ABSENT: diastolic murmur, rubs, systolic murmur GI/Abdominal exam: PRESENT: normal bowel sounds, soft. ABSENT: distended, guarding, mass, organolmegaly, rebound, tenderness Neurological exam: PRESENT: alert, awake, oriented to person, oriented to place , oriented to time, oriented to situation, CN II-XII grossly intact. ABSENT: motor sensory deficit Psychiatric exam: PRESENT: appropriate affect Skin exam: PRESENT: dry, intact, warm. ABSENT: cyanosis, rash Results Laboratory Results: 03/26/17 05:55 03/26/17 05:55 03/25/17 03/26/17 03/26/17 21:15 05:55 05:55 WBC 4.5 RBC 4.80 Hgb 12.1 L Hct 36.9 L MCV 77 L MCH 25.1 L MCHC 32.7 RDW 13.8 Plt Count 87 L Sodium 136.5 L 141.7 Potassium 5.3 H 4.8 Chloride 96 L 103 Carbon Dioxide 30 32 H Anion Gap 11 7 BUN 38 H 28 H Creatinine 1.30 H 1.07 Est GFR ( Amer) > 60 > 60 Est GFR (Non-Af Amer) 58 L > 60 Glucose 569 H* 274 H Calcium 8.2 L 8.1 L 03/25/17 03/25/17 21:15 21:15 Creatine Kinase 374 H CK-MB (CK-2) 3.91 Troponin I 0.032 Impressions: Chest X-Ray 03/25/17 12:55 IMPRESSION: NO SIGNIFICANT RADIOGRAPHIC FINDING IN THE CHEST. Qualifiers PATEINT BEING DISCHARGED WITH ANY OF THE FOLLOWING DIAGNOSIS?: No Plan Discharge Plan: Discharged to home. [facility]. Time Spent: Less than 30 Minutes
== END 2017-03-26 09:42 | disposition home or self-care (01) ==
LOC: ER 11:44 → INTOOBSV 18:08 → EH 18:08
PROVIDERS: ADMIT Internal Medicine; ATTEND Internal Medicine
DX: N17.9 Acute kidney failure, unspecified (principal); E11.65 Type 2 diabetes mellitus with hyperglycemia; E86.0 Dehydration; R07.89 Other chest pain; I10 Essential (primary) hypertension; E78.5 Hyperlipidemia, unspecified; Z79.82 Long term (current) use of aspirin; Z79.899 Other long term (current) drug therapy; Z59.0 Homelessness; Z91.14 Patient's other noncompliance with medication regimen; Z59.8 Other problems related to housing and economic circumstances; Z86.711 Personal history of pulmonary embolism; Z87.891 Personal history of nicotine dependence; Z83.3 Family history of diabetes mellitus
CPT/HCPCS: 93005; 99285; 96360; 96361; 36415 ×2; 82553; 82962 ×2; 82550; 83930; 85025; 85027; 80048 ×2; 80053; 81001; 84484; 82803; 71020; 93010; J1815 ×2; J3490 ×2; J7030 ×2

== ENCOUNTER 2017-03-27 09:55 | Emergency (ER) | payer OTHER ==
[2017-03-27] MEDS ORDERED: NORMAL SALINE 1000 ML 1,000 ML IV PRN (10:09)
--- NOTE | 2017-03-27 10:09 | ER Document Report ---
ED Blood Sugar Problem - General Chief Complaint: High Blood Sugar Stated Complaint: BLOOD SUGAR CONCERNS Time Seen by Provider: 03/27/17 10:04 Notes: The patient is a 51-year-old male, past medical history diabetes, hypertension, homeless, presents because his blood sugar when he checked earlier today was 500. He gave himself his Lantus this morning. He was admitted to the hospital yesterday for JC from dehydration from hyperglycemia and he was discharged with a Lantus pen. He lost his prescription for lisinopril and metformin. Patient is having polyuria polydipsia, but denies chest pain, shortness of breath, nausea, vomiting, fevers, headache, back pain or syncope. TRAVEL OUTSIDE OF THE [place] IN LAST 30 DAYS: No - Related Data Allergies/Adverse Reactions: No Known Allergies Allergy (Verified 03/27/17 09:58) Past Medical History - General Information source: Patient - Social History Smoking Status: Unknown if Ever Smoked Family History: Reviewed & Not Pertinent - Past Medical History Cardiac Medical History: Reports: Hx Hypercholesterolemia, Hx Hypertension, Hx Pulmonary Embolism Endocrine Medical History: Reports: Hx Diabetes Mellitus Type 2 Renal/ Medical History: Denies: Hx Peritoneal Dialysis Psychiatric Medical History: Denies: Hx Depression Past Surgical History: Reports: Hx Cardiac Catheterization Review of Systems - Review of Systems Notes: REVIEW OF SYSTEMS: CONSTITUTIONAL: -fevers, -chills EENT: -eye pain, -difficulty swallowing, -nasal congestion CARDIOVASCULAR:-chest pain, -syncope. RESPIRATORY: -cough, -SOB GASTROINTESTINAL: -abdominal pain, - nausea, -vomiting, -diarrhea GENITOURINARY: -dysuria, -hematuria, +polyuria MUSCULOSKELETAL: -back pain, -neck pain SKIN: -rash or skin lesions. HEMATOLOGIC: -easy bruising or bleeding. LYMPHATIC: -swollen, enlarged glands. NEUROLOGICAL: -altered mental status or loss of consciousness, -headache, - neurologic symptoms PSYCHIATRIC: -anxiety, -depression. ALL OTHER SYSTEMS REVIEWED AND NEGATIVE. Physical Exam - Vital signs Vitals: Temp Pulse Resp BP Pulse Ox 98.4 F 88 18 172/106 H 99 03/27/17 10:00 03/27/17 10:00 03/27/17 10:00 03/27/17 10:00 03/27/17 10:00 - Notes Notes: PHYSICAL EXAMINATION: GENERAL: Well-appearing, well-nourished and in no acute distress. HEAD: Atraumatic, normocephalic. EYES: Pupils equal round and reactive to light, extraocular movements intact, sclera anicteric, conjunctiva are normal. ENT: nares patent, oropharynx clear without exudates. Moist mucous membranes. NECK: Normal range of motion, supple without lymphadenopathy LUNGS: Breath sounds clear to auscultation bilaterally and equal. No wheezes rales or rhonchi. HEART: Regular rate and rhythm without murmurs ABDOMEN: Soft, nontender, normoactive bowel sounds. No guarding, no rebound. No masses appreciated. EXTREMITIES: Normal range of motion, no pitting or edema. No cyanosis. NEUROLOGICAL: Cranial nerves grossly intact. Normal speech, normal gait. Normal sensory and motor exams. PSYCH: Normal mood, normal affect. SKIN: Warm, Dry, normal turgor, no rashes or lesions noted. Course - Re-evaluation Re-evalutation: Patient lost his lisinopril 40 mg daily prescription and metformin 500 mg twice daily that were given to him yesterday. Spoke to Gregorio Samaniego, case coordinator , who saw the patient in the ER and she will help him obtain the lisinopril and metformin. Patient has hyperglycemia without evidence of DKA or HHS. No ketones in his urine and he appears well. Instructed him to [facility] for further evaluation and treatment. - Vital Signs Vital signs: Temp Pulse Resp BP Pulse Ox 98.4 F 88 18 172/106 H 99 03/27/17 10:00 03/27/17 10:00 03/27/17 10:00 03/27/17 10:00 03/27/17 10:00 - Laboratory Laboratory results interpreted by me: 03/27/17 10:35 Urine Glucose (UA) >=500 H Discharge - Discharge Clinical Impression: Diabetes type 2, uncontrolled Qualifiers: Diabetes mellitus complication status: without complication Diabetes mellitus supervisor intermediates insulin use: unspecified mcfp insulin use status Qualified Code(s ): E11.65 - Type 2 diabetes mellitus with hyperglycemia Hypertension Qualifiers: Hypertension type: unspecified Qualified Code(s): I10 - Essential (primary) hypertension Condition: Stable Disposition: HOME, SELF-CARE Additional Instructions: HYPERGLYCEMIA (HIGH BLOOD SUGAR): You have an abnormally high blood sugar. Not all high blood sugar requires long-term treatment. High blood sugar can be due to medications, , or the stress of illness. (These cases are "borderline diabetes.") If the doctor feels your high blood sugar might resolve with time, you may not require treatment now. It's very important that you follow through, to see if the blood sugar returns to normal levels. Uncontrolled high blood sugar leads to early heart disease, strokes, nerve damage, eye damage, and kidney damage. Call the physician if there is faintness, excess sleepiness, or very rapid breathing. DIABETES: You have an abnormally high blood sugar, suspicious for diabetes. Not all high blood sugar requires long-term treatment. High blood sugar can be due to medications, , or the stress of illness. (These cases are "borderline diabetes.") If the doctor feels your high blood sugar might get better with time, you may not require treatment now. It's very important that you follow through. Uncontrolled high blood sugar leads to early heart disease, strokes, nerve damage, eye damage, and kidney damage. All diabetics should follow a diet designed to control the blood sugar. Overweight diabetics should exercise regularly and lose weight. If this is not sufficient to control the blood sugar, pills or insulin shots are necessary. Younger people who develop diabetes almost always require insulin daily. Home testing of blood sugars or urine sugar is required. Diabetic teaching is available to help you figure insulin doses and monitor the blood sugar. Call the physician if there is faintness, excess sleepiness, or very rapid breathing. If hypoglycemia (LOW blood sugar) develops, symptoms are shakiness, weakness, sweating, and confusion. In this case, you should eat or drink something with sugar at once. ORAL HYPOGLYCEMIC MEDICATION: Oral hypoglycemics are medicines that lower blood sugar in diabetics. They are not effective for younger diabetics who require insulin. Some brands are tolbutamide, Orinase, glipizide, Glucotrol, glyburide, DiaBeta, Glynase, and Micronase. Some medications can increase or decrease the effect of Diabinese. Examples are Clofibrate (Atromid-S), phenylbutazone (Butazolidin), aspirin, sulfonamides, Coumadin, allopurinol (Zyloprim), probenecid (Benemid), acetazolamide (Diamox), beta blockers, steroids, estrogens, Indocin, INH, Levothyroxine, nicotinic acid, Diflucan, Dilantin, and thiazide diuretics. Be sure your doctor knows all the medicines you take, and talk to your doctor before making any changes in your medicines. If you develop symptoms of shakiness, sweats, and lightheadedness, your blood sugar may have gone too low. Eat or drink a small amount of sweet food. If symptoms don't go away, call your doctor. FOLLOW-UP CARE: If you have been referred to a physician for follow-up care, call the physician s office for an appointment as you were instructed or within the next two days. If you experience worsening or a significant change in your symptoms, notify the physician immediately or return to the Emergency Department at any time for re-evaluation. Prescriptions: Lisinopril 40 mg PO DAILY #30 tablet Metformin HCl [Glucophage 500 mg Tablet] 500 mg PO BID #60 tablet Forms: Elevated Blood Pressure Referrals: [facility] [Provider Group] - Follow up as needed
[2017-03-27 11:18] LABS: APPEARANCE,URINE CLEAR; BILIRUBIN,URINE NEGATIVE (NEGATIVE); GLUCOSE, URINE >=500 mg/dL (NEGATIVE); KETONES,URINE NEGATIVE (NEGATIVE); LEUKOCYTE ESTERASE,URINE NEGATIVE (NEGATIVE); NITRITE,URINE NEGATIVE (NEGATIVE); PROTEIN,URINE NEGATIVE (NEGATIVE); URINE SPECIFIC GRAVITY 1.028; UROBILINOGEN,URINE NEGATIVE mg/dL (<2.0)
[2017-03-27 11:33] VITALS: BP 179/114
== END 2017-03-27 11:35 | disposition home or self-care (01) ==
LOC: ER 09:55
DX: E11.65 Type 2 diabetes mellitus with hyperglycemia (principal); I10 Essential (primary) hypertension
CPT/HCPCS: 81001; 82962; 99284

== ENCOUNTER 2017-04-07 15:17 | Emergency (ER) | payer OTHER ==
[2017-04-07] MEDS ORDERED: INSULIN REG, HUMAN 100 UNIT/ML 3 ML VIAL (PYX) IV ONE (16:06)
[2017-04-07] MEDS ORDERED: NORMAL SALINE 1000 ML 1,000 ML IV ONE (16:06)
--- NOTE | 2017-04-07 16:09 | ER Document Report ---
ED Medical Screen (RME) - General Chief Complaint: High Blood Sugar Stated Complaint: DIZZINESS,BLURRED VISION Time Seen by Provider: 04/07/17 16:06 Notes: Patient presents with weakness fatigue and blurry vision. He states he has been without his insulin for approximately 3 months. He states he lost his insurance and is in the process of getting Medicaid. He states he has seen the [facility] but they are unable to see him currently. He did produce a card which he said he is supposed to show when he comes to the hospital and that the [facility] told him to return to the hospital if he needs further care. TRAVEL OUTSIDE OF THE [place] IN LAST 30 DAYS: No - Related Data Allergies/Adverse Reactions: No Known Allergies Allergy (Verified 03/27/17 09:58) Past Medical History - Social History Frequency of alcohol use: None Drug Abuse: None - Past Medical History Cardiac Medical History: Reports: Hx Hypercholesterolemia, Hx Hypertension, Hx Pulmonary Embolism Endocrine Medical History: Reports: Hx Diabetes Mellitus Type 2 Renal/ Medical History: Denies: Hx Peritoneal Dialysis Psychiatric Medical History: Denies: Hx Depression Past Surgical History: Reports: Hx Cardiac Catheterization - Immunizations History of Influenza Vaccine for 01/2017 - 06/2017 Season: Unknown Physical Exam - Vital signs Vitals: Temp Pulse Resp BP Pulse Ox 97.6 F 114 H 18 132/81 H 98 04/07/17 15:22 04/07/17 15:22 04/07/17 15:22 04/07/17 15:22 04/07/17 15:22 Course - Vital Signs Vital signs: Temp Pulse Resp BP Pulse Ox 97.6 F 114 H 18 132/81 H 98 04/07/17 15:22 04/07/17 15:22 04/07/17 15:22 04/07/17 15:22 04/07/17 15:22
[2017-04-07 16:46] LABS: APPEARANCE,URINE CLEAR; BILIRUBIN,URINE NEGATIVE (NEGATIVE); GLUCOSE, URINE >=500 mg/dL (NEGATIVE); KETONES,URINE NEGATIVE (NEGATIVE); LEUKOCYTE ESTERASE,URINE NEGATIVE (NEGATIVE); NITRITE,URINE NEGATIVE (NEGATIVE); PROTEIN,URINE NEGATIVE (NEGATIVE); URINE SPECIFIC GRAVITY 1.025; UROBILINOGEN,URINE NEGATIVE mg/dL (<2.0)
[2017-04-07 17:36] LABS: ABSOLUTE EOSINOPHILS # (AUTO) 0.1 10^3/uL (0.0-0.6); ABSOLUTE LYMPHOCYTES (AUTO) 1.7 10^3/uL (0.5-4.7); ABSOLUTE MONOCYTES (AUTO) 0.5 10^3/uL (0.1-1.4); ABSOLUTE NEUT (AUTO) 3.9 10^3/uL (1.7-8.2); BASOPHILS % (AUTO) 0.7 % (0-2); EOSINOPHILS % (AUTO) 1.8 % (0-6); HEMATOCRIT 41.2 % (37.9-51.0); HEMOGLOBIN 13.4 g/dL (13.5-17.0); LYMPHOCYTES % (AUTO) 27.5 % (13-45); MEAN CORPUSCULAR HEMOGLOBIN 25.2 pg (27.0-33.4); MEAN CORPUSCULAR HGB CONC 32.5 g/dL (32.0-36.0); MEAN CORPUSCULAR VOLUME 77 fl (80-97); MONOCYTES % (AUTO) 8.2 % (3-13); RED BLOOD COUNT 5.33 10^6/uL (4.35-5.55); RED CELL DISTRIBUTION WIDTH 14.2 % (11.5-14.0); SEGMENTED NEUTROPHILS % (AUTO) 61.8 % (42-78); WHITE BLOOD COUNT 6.3 10^3/uL (4.0-10.5)
[2017-04-07 17:57] LABS: ALANINE AMINOTRANSFERASE 37 U/L (21-72); ALBUMIN 4.6 g/dL (3.5-5.0); ALKALINE PHOSPHATASE 128 U/L (38-126); ANION GAP 14 (5-19); ASPARTATE AMINO TRANSFERASE 31 U/L (17-59); BILIRUBIN,DIRECT 0.2 mg/dL (0.0-0.4); BILIRUBIN,TOTAL 0.4 mg/dL (0.2-1.3); BLOOD UREA NITROGEN 33 mg/dL (7-20); CALCIUM 10.2 mg/dL (8.4-10.2); CARBON DIOXIDE 31 mmol/L (22-30); CHLORIDE 92 mmol/L (98-107); CREATININE RESULT 1.23 mg/dL (0.52-1.25); POTASSIUM 4.8 mmol/L (3.6-5.0); TOTAL PROTEIN 8.3 g/dL (6.3-8.2)
[2017-04-07 18:08] LABS: GLUCOSE 491 mg/dL (75-110)
--- NOTE | 2017-04-07 19:06 | ER Document Report ---
ED General - General Chief Complaint: High Blood Sugar Stated Complaint: DIZZINESS,BLURRED VISION Time Seen by Provider: 04/07/17 16:06 Notes: Patient is a 51 year old male with a past medical history of uncontrolled type 2 diabetes who presents for the fourth time in less than 2 weeks with complaints of blurred vision and hypoglycemia. Patient is homeless and does not have access to his medications. He denies any is new or different symptoms today relative to the past several weeks but states that he knew his blood sugar was high so he came to the emergency department for treatment. He denies any polyuria, polydipsia, headache, neck pain, fever, cough, sputum production, abdominal pain or vomiting. Nothing improves or worsens his symptoms. He denies any head trauma. Symptoms have been constant since onset. He has a follow-up appointment scheduled in the [facility] but states it is not for 3 months. TRAVEL OUTSIDE OF THE [place] IN LAST 30 DAYS: No - Related Data Allergies/Adverse Reactions: No Known Allergies Allergy (Verified 03/27/17 09:58) Past Medical History - General Information source: Patient - Social History Smoking Status: Former Smoker Frequency of alcohol use: None Drug Abuse: None Lives with: Homeless Family History: Reviewed & Not Pertinent Patient has suicidal ideation: No Patient has homicidal ideation: No - Past Medical History Cardiac Medical History: Reports: Hx Hypercholesterolemia, Hx Hypertension, Hx Pulmonary Embolism Endocrine Medical History: Reports: Hx Diabetes Mellitus Type 2 Renal/ Medical History: Denies: Hx Peritoneal Dialysis Psychiatric Medical History: Denies: Hx Depression Past Surgical History: Reports: Hx Cardiac Catheterization Review of Systems - Review of Systems Notes: Constitutional: Negative for fever. HENT: Negative for sore throat. Eyes: Positive for visual changes. Cardiovascular: Negative for chest pain. Respiratory: Negative for shortness of breath. Gastrointestinal: Negative for abdominal pain, vomiting or diarrhea. Genitourinary: Negative for dysuria. Musculoskeletal: Negative for back pain. Skin: Negative for rash. Neurological: Negative for headaches, weakness or numbness. 10 point ROS negative except as marked above and in HPI. Physical Exam - Vital signs Vitals: Temp Pulse Resp BP Pulse Ox 97.6 F 114 H 18 132/81 H 98 04/07/17 15:22 04/07/17 15:22 04/07/17 15:22 04/07/17 15:22 04/07/17 15:22 Interpretation: Normal Notes: PHYSICAL EXAMINATION: GENERAL: Well-appearing, well-nourished and in no acute distress. HEAD: Atraumatic, normocephalic. EYES: Pupils equal round and reactive to light, extraocular movements intact, sclera anicteric, conjunctiva are normal. ENT: nares patent, oropharynx clear without exudates. Moist mucous membranes. NECK: Normal range of motion, supple without lymphadenopathy LUNGS: Breath sounds clear to auscultation bilaterally and equal. No wheezes rales or rhonchi. HEART: Regular rate and rhythm without murmurs ABDOMEN: Soft, nontender, normoactive bowel sounds. No guarding, no rebound. No masses appreciated. EXTREMITIES: Normal range of motion, no pitting or edema. No cyanosis. NEUROLOGICAL: Face symmetric. Tongue protrudes midline. Extraocular motions intact. Pupils are 2 mm and equally reactive. Normal speech, normal gait. 5 out of 5 strength in both the distal and proximal upper and lower extremities bilaterally. Sensation is grossly intact throughout. Finger to nose testing normal. Pronator drift normal. PSYCH: Normal mood, normal affect. SKIN: Warm, Dry, normal turgor, no rashes or lesions noted. Course - Re-evaluation Re-evalutation: 04/07/17 19:05 Presentation of asymptomatic hyperglycemia. There is no evidence of HHS or diabetic ketoacidosis on laboratories or based on clinical history. Patient's vitals are within normal limits. They deny any acute focal complaints. Treatment with insulin and IV fluids given here in the emergency department with appropriate response of the blood sugar. Patient does have primary care follow-up. Patient was instructed to continue taking their metformin and advised they will likely need to increase dietary modification and may also need medication changes. Indications to return to emergency department as well as the importance of close outpatient follow-up were discussed at length. Patient verbalized understanding of the need for close follow-up and indications to return to the ED. - Vital Signs Vital signs: Temp Pulse Resp BP Pulse Ox 97.5 F 88 16 136/94 H 96 04/07/17 19:46 04/07/17 19:46 04/07/17 19:46 04/07/17 19:46 04/07/17 19:46 - Laboratory Result Diagrams: 04/07/17 17:22 04/07/17 17:22 Laboratory results interpreted by me: 04/07/17 04/07/17 04/07/17 16:35 17:22 17:22 Hgb 13.4 L MCV 77 L MCH 25.2 L RDW 14.2 H Chloride 92 L Carbon Dioxide 31 H BUN 33 H Glucose 491 H* POC Glucose Alkaline Phosphatase 128 H Total Protein 8.3 H Urine Glucose (UA) >=500 H 04/07/17 19:15 Hgb MCV MCH RDW Chloride Carbon Dioxide BUN Glucose POC Glucose 335 H Alkaline Phosphatase Total Protein Urine Glucose (UA) Discharge - Discharge Clinical Impression: Hyperglycemia Diabetes type 2, uncontrolled Qualifiers: Diabetes mellitus complication status: with unspecified complications Diabetes mellitus fdc insulin use: with fdc use Qualified Code(s): E11.8 - Type 2 diabetes mellitus with unspecified complications Condition: Stable Disposition: HOME, SELF-CARE Additional Instructions: You need to followup urgently with your primary care doctor as your blood sugars were dangerously high today. You did not have any evidence of a dangerous condition associated with these blood sugars at this time. However, it is very important that you get your blood sugars under control. Please take all of your medications exactly as directed. You should avoid foods that are high in carbohydrates and sugary foods. Losing weight will also help to better control your blood sugars. Please return to emergency department immediately if you develop weakness, persistent vomiting, confusion, or any other symptoms that are concerning to you. Prescriptions: Metformin HCl [Glucophage 500 mg Tablet] 500 mg PO BID #60 tablet
[2017-04-07 19:47] VITALS: BP 136/94
== END 2017-04-07 19:47 | disposition home or self-care (01) ==
LOC: ER 15:17
DX: E11.65 Type 2 diabetes mellitus with hyperglycemia (principal); H53.8 Other visual disturbances; I10 Essential (primary) hypertension; Z86.711 Personal history of pulmonary embolism; Z59.0 Homelessness; Z87.891 Personal history of nicotine dependence
CPT/HCPCS: 99283; 36415; 82962; 85025; 80053; 81001; J1815; J7030